=== PATIENT | male | born 1940 | race Two or more races ===

== ENCOUNTER 2017-09-05 12:53 | Outpatient (CLI) | payer OTHER ==
[~2017-09-05 12:53] MED LIST: ASA81 MG; HYDREA500 M1; PROSCAR5 MG; RANITIDINE HCL150 M1; TAMS0.4C
== END 2017-09-05 13:20 | disposition home or self-care (01) ==
LOC: LAB 12:53
DX: D45 Polycythemia vera (principal); D47.1 Chronic myeloproliferative disease; N40.1 Benign prostatic hyperplasia with lower urinary tract symptoms; D68.8 Other specified coagulation defects; D50.8 Other iron deficiency anemias; D51.8 Other vitamin B12 deficiency anemias; I10 Essential (primary) hypertension; N39.9 Disorder of urinary system, unspecified; R97.0 Elevated carcinoembryonic antigen [CEA]; E03.8 Other specified hypothyroidism; E78.2 Mixed hyperlipidemia; N40.0 Benign prostatic hyperplasia without lower urinary tract symptoms

== ENCOUNTER 2017-09-15 15:21 | Outpatient (CLI) | payer OTHER | END 2017-09-15 17:20 | disposition home or self-care (01) | LOC: SONOGRAMA 15:21 | DX: N40.1 Benign prostatic hyperplasia with lower urinary tract symptoms (principal) ==

== ENCOUNTER → 2017-10-10 | Outpatient (CLI) | payer OTHER | END | disposition home or self-care (01) | LOC: EDBD 09:55 → NUCLEAR 09:55 | DX: R97.0 Elevated carcinoembryonic antigen [CEA] (principal); D47.3 Essential (hemorrhagic) thrombocythemia; D45 Polycythemia vera | CPT/HCPCS: 78815; A9552 ==

== ENCOUNTER 2017-12-07 09:49 | Outpatient (CLI) | payer OTHER | END 2017-12-07 10:16 | disposition home or self-care (01) | LOC: EDBD 09:49 → LAB 09:49 | DX: D45 Polycythemia vera (principal); D47.1 Chronic myeloproliferative disease; N40.1 Benign prostatic hyperplasia with lower urinary tract symptoms; D68.8 Other specified coagulation defects; D50.8 Other iron deficiency anemias; D51.8 Other vitamin B12 deficiency anemias; I10 Essential (primary) hypertension; R97.0 Elevated carcinoembryonic antigen [CEA]; E03.8 Other specified hypothyroidism ==

== ENCOUNTER 2018-01-17 20:47 | Emergency (ER) | payer OTHER ==
[~2018-01-17] VITALS: Ht 167.6 cm; Wt 83.9 kg
== END 2018-01-17 23:42 | disposition home or self-care (01) ==
LOC: ER 20:47
DX: J32.0 Chronic maxillary sinusitis (principal)

== ENCOUNTER 2018-02-20 10:28 | Emergency (ER) | payer OTHER ==
[~2018-02-20] VITALS: Ht 200.7 cm; Wt 80.7 kg
[2018-02-20] MEDS ORDERED: LEVAQUIN750 MG PO (17:51)
== END 2018-02-20 19:56 | disposition home or self-care (01) ==
LOC: ER 10:28
DX: N39.0 Urinary tract infection, site not specified (principal); B96.29 Other Escherichia coli [E. coli] as the cause of diseases classified elsewhere

== ENCOUNTER → 2018-05-29 | Emergency (ER) | payer OTHER ==
[~2018-05-29] VITALS: Ht 167.6 cm; Wt 81.6 kg
[~2018-05-29] MED LIST changes: +LEVAQUIN750 MG PO
== END | disposition home or self-care (01) ==
LOC: ER 09:57
DX: S60.212A Contusion of left wrist, initial encounter (principal); W22.8XXA Striking against or struck by other objects, initial encounter; Y93.89 Activity, other specified; Y92.89 Other specified places as the place of occurrence of the external cause; Y99.8 Other external cause status

== ENCOUNTER 2018-12-21 17:01 | Outpatient (CLI) | payer OTHER | END 2018-12-21 20:15 | disposition home or self-care (01) | LOC: LAB 17:01 | DX: D68.8 Other specified coagulation defects (principal); D45 Polycythemia vera; D47.1 Chronic myeloproliferative disease; N40.1 Benign prostatic hyperplasia with lower urinary tract symptoms; N40.3 Nodular prostate with lower urinary tract symptoms; I70.213 Atherosclerosis of native arteries of extremities with intermittent claudication, bilateral legs; D50.8 Other iron deficiency anemias; D51.8 Other vitamin B12 deficiency anemias; I10 Essential (primary) hypertension ==

== ENCOUNTER 2018-12-28 10:56 | Outpatient (CLI) | payer OTHER | END 2018-12-28 11:04 | disposition home or self-care (01) | LOC: NUCLEAR 10:56 | DX: I70.213 Atherosclerosis of native arteries of extremities with intermittent claudication, bilateral legs (principal); I80.221 Phlebitis and thrombophlebitis of right popliteal vein ==

== ENCOUNTER → 2018-12-29 | Outpatient (CLI) | payer OTHER | END | disposition home or self-care (01) | LOC: NUCLEAR 10:17 | DX: I80.221 Phlebitis and thrombophlebitis of right popliteal vein (principal); I70.213 Atherosclerosis of native arteries of extremities with intermittent claudication, bilateral legs ==

== ENCOUNTER 2019-02-27 10:06 | Outpatient (CLI) | payer OTHER | END 2019-02-27 15:00 | disposition home or self-care (01) | LOC: LAB 10:06 | DX: D45 Polycythemia vera (principal); D47.1 Chronic myeloproliferative disease; N40.1 Benign prostatic hyperplasia with lower urinary tract symptoms; D68.8 Other specified coagulation defects; R97.0 Elevated carcinoembryonic antigen [CEA]; J01.11 Acute recurrent frontal sinusitis; N40.3 Nodular prostate with lower urinary tract symptoms; I70.213 Atherosclerosis of native arteries of extremities with intermittent claudication, bilateral legs; I80.221 Phlebitis and thrombophlebitis of right popliteal vein; D50.8 Other iron deficiency anemias; D51.8 Other vitamin B12 deficiency anemias; I10 Essential (primary) hypertension; D51.1 Vitamin B12 deficiency anemia due to selective vitamin B12 malabsorption with proteinuria ==

== ENCOUNTER → 2019-05-29 13:31 | Outpatient (CLI) | payer OTHER | END | disposition home or self-care (01) | LOC: LAB 13:31 | DX: D45 Polycythemia vera (principal); D47.1 Chronic myeloproliferative disease; N40.1 Benign prostatic hyperplasia with lower urinary tract symptoms; D68.8 Other specified coagulation defects; R97.0 Elevated carcinoembryonic antigen [CEA]; J01.11 Acute recurrent frontal sinusitis; N40.3 Nodular prostate with lower urinary tract symptoms; I70.213 Atherosclerosis of native arteries of extremities with intermittent claudication, bilateral legs; D50.8 Other iron deficiency anemias; D51.8 Other vitamin B12 deficiency anemias; R97.20 Elevated prostate specific antigen [PSA]; R97.8 Other abnormal tumor markers; E03.8 Other specified hypothyroidism ==

== ENCOUNTER 2019-08-21 08:47 | Outpatient (CLI) | payer OTHER | END 2019-08-21 08:59 | disposition home or self-care (01) | LOC: LAB 08:47 | DX: D45 Polycythemia vera (principal); D47.1 Chronic myeloproliferative disease; N40.1 Benign prostatic hyperplasia with lower urinary tract symptoms; D68.8 Other specified coagulation defects; R97.0 Elevated carcinoembryonic antigen [CEA]; J01.11 Acute recurrent frontal sinusitis; N40.3 Nodular prostate with lower urinary tract symptoms; I70.213 Atherosclerosis of native arteries of extremities with intermittent claudication, bilateral legs; I80.221 Phlebitis and thrombophlebitis of right popliteal vein; D50.8 Other iron deficiency anemias; D51.8 Other vitamin B12 deficiency anemias; I10 Essential (primary) hypertension; E03.8 Other specified hypothyroidism; R97.8 Other abnormal tumor markers ==

== ENCOUNTER 2020-07-01 07:24 | Emergency (ER) | payer OTHER ==
[~2020-07-01] VITALS: Ht 165.1 cm; Wt 83.5 kg
[2020-07-01] MEDS ORDERED: CHILDREN'S ASPI81 MG (07:42)
[2020-07-01] MEDS ORDERED: ACETAMINOPHEN650 M2 PO (10:29)
[2020-07-01] MEDS ORDERED: VITAMIN C WIT1000 MG PO (10:29)
[2020-07-01] MEDS ORDERED: GUAIFENESIN400 MG PO (11:18)
[2020-07-01] MEDS ORDERED: INTESTINEX680 M2 PO (11:18)
== END 2020-07-01 11:28 | disposition home or self-care (01) ==
LOC: ER 07:24
DX: J06.9 Acute upper respiratory infection, unspecified (principal); B34.9 Viral infection, unspecified; Z03.818 Encounter for observation for suspected exposure to other biological agents ruled out